=== PATIENT | male | born 1995 | race Caucasian/White ===

== ENCOUNTER 2018-01-29 23:11 | Emergency (ER) | payer OTHER ==
[~2018-01-29] VITALS: Ht 167.6 cm; Wt 78.0 kg
[2018-01-29 23:34] VITALS: Ht 167.6 cm; Wt 78.0 kg
[2018-01-30 01:38] LABS: microscopic required? YES; urine erythrocyte TRACE (NEGATIVE)
[2018-01-30 02:39] LABS: AMPHETAMINE QUAL UR NONE DETECTED (See below)
[2018-01-30 04:43] VITALS: BP 130/77
== END 2018-01-30 04:43 | disposition home or self-care (01) ==
LOC: ED 23:11
PROVIDERS: Emergency Medicine
DX: N20.0 Calculus of kidney (principal); F17.210 Nicotine dependence, cigarettes, uncomplicated; Z87.442 Personal history of urinary calculi
CPT/HCPCS: J1885; Q0092